=== PATIENT | female | born 1955 | race African-American/Black ===

== ENCOUNTER 2018-03-20 12:48 | Emergency (ER) | payer SELFPAY ==
[2018-03-20 13:35] VITALS: BP 153/102
--- NOTE | 2018-03-20 13:38 | UC ---
Respiratory Complaint HPI - HPI Summary HPI Summary: 63 yo female presents with intermittently productive cough, sore throat, itchy eyes, and sinus congestion for 2 days. She took Zyrtec last night and had no change in her symptoms. Denies fever, chills, SOB, chest pain, abdominal pain, n /v. - History of Current Complaint Chief Complaint: UCRespiratory Stated Complaint: COUGH Time Seen by Provider: 03/20/18 13:38 Hx Obtained From: Patient Onset/Duration: Gradual Onset Severity Initially: Mild Severity Currently: Mild Pain Intensity: 3 Pain Scale Used: 0-10 Numeric - Allergies/Home Medications Allergies/Adverse Reactions: Allergies Allergy/AdvReac Type Severity Reaction Status Date / Time pollen Allergy Itching Uncoded 03/20/18 13:30 Home Medications: Home Medications guaiFENesin LIQ* [Robitussin*] 5 mg PO Q4H PRN 03/20/18 [History Confirmed 03/20] PMH/Surg Hx/FS Hx/Imm Hx - Additional Past Medical History Additional PMH: None Previously Healthy: Yes - Surgical History Surgical History: None - Family History Known Family History: Positive: None - Social History Occupation: Retired Lives: With Family Alcohol Use: None Substance Use Type: None Smoking Status (MU): Never Smoked Tobacco Review of Systems Constitutional: Negative Skin: Negative Eyes: Negative ENT: Sore Throat, Sinus Congestion Respiratory: Cough Cardiovascular: Negative Gastrointestinal: Negative Neurovascular: Negative Neurological: Negative Psychological: Negative All Other Systems Reviewed And Are Negative: Yes Physical Exam - Summary Physical Exam Summary: GENERAL: NAD. WDWN. No pain distress. SKIN: No rashes, sores, lesions, or open wounds. HEENT: Head: AT/NC Eyes: EOM intact. Conjunctiva clear without inflammation or discharge. Ears: Hearing grossly normal. TMs intact, no bulging, erythema, or edema. Nose: Nasal mucosa pink and moist. NTTP maxillary and frontal sinus. Throat: Posterior oropharynx without exudates, erythema, or tonsillar enlargement. Uvula midline. NECK: Supple. Nontender. No lymphadenopathy. CHEST: CTAB. No r/r/w. No accessory muscle use. Breathing comfortably and in no distress. CV: RRR. Without m/r/g. Pulses intact. Brisk cap refill. NEURO: Alert. CN II-XII grossly intact. PSYCH: Age appropriate behavior. Triage Information Reviewed: Yes Vital Signs: Initial Vital Signs Temp 98.7 F 03/20/18 13:31 Pulse 110 03/20/18 13:31 Resp 20 03/20/18 13:31 BP 153/102 03/20/18 13:31 Pulse Ox 97 03/20/18 13:31 Diagnostic Evaluation - Laboratory O2 Sat by Pulse Oximetry: 97 Respiratory Course/Dx - Course Course Of Treatment: Suspect allergies. Tessalon for cough. Nasonex for sinuses and naphcon for itchy eyes. - Differential Dx/Diagnosis Provider Diagnoses: Allergies Discharge - Sign-Out/Discharge Documenting (check all that apply): Discharge/Admit/Transfer - Discharge Plan Condition: Stable Disposition: HOME Prescriptions: Benzonatate CAP* [Tessalon 100 MG CAP*] 100 mg PO TID PRN #15 cap PRN Reason: Cough Mometasone Furoate [Nasonex] 1 spray BOTH NARES DAILY #1 bottle Naphazoline/Pheniramine OPTH* [Naphcon-A*] 1 drop BOTH EYES BID #1 btl Patient Education Materials: Allergies (ED) Referrals: No Primary Care Phys,NOPCP [Primary Care Provider] - Additional Instructions: If you develop a fever, shortness of breath, chest pain, new or worsening symptoms - please call your PCP or go to the ED. Your blood pressure was high at todays visit. Please see your primary provider within 4 weeks for recheck and re-evaluation. - Billing Disposition and Condition Condition: STABLE Disposition: HOME
[2018-03-20] MEDS ORDERED: Benzonatate CAP* 100 MG PO ONE (13:46)
== END 2018-03-20 14:03 | disposition home or self-care (01) ==
LOC: UCEAST 12:48
DX: T78.40XA Allergy, unspecified, initial encounter (principal); X58.XXXA Exposure to other specified factors, initial encounter
CPT/HCPCS: 99202; A9270-GY; G0463

== ENCOUNTER 2018-08-14 13:19 | Emergency (ER) | payer SELFPAY ==
[2018-08-14] MEDS ORDERED: Ketorolac INJ* 60 MG/2 ML VIAL IM ONE (14:30)
[2018-08-14] MEDS ORDERED: HYDROcodone/ACETAMIN 5-325 MG* 1 TAB PO ONE (14:30)
--- NOTE | 2018-08-14 14:31 | UC ---
Upper Extremity HPI - HPI Summary HPI Summary: This patient is a 63 year old F presenting to [facility] [place] with a chief complaint of right shoulder pain and numbness for the last two weeks. The patient rates the waxing and waning pain 9/10 in severity. Symptoms aggravated by movement. She has no other complaints at this time. - History of Current Complaint Chief Complaint: UCUpperExtremity Stated Complaint: SHOULDER PAIN NUMBNESS Time Seen by Provider: 08/14/18 14:19 Hx Obtained From: Patient Onset/Duration: Lasting Weeks - 2, Still Present Severity Initially: Moderate Severity Currently: Severe Pain Intensity: 9 Pain Scale Used: 0-10 Numeric Location Of Pain: Is Discrete @ - right shoulder Aggravating Factor(s): Movement Associated Signs And Symptoms: Positive: Negative - fever, Numbness/Tingling - Allergies/Home Medications Allergies/Adverse Reactions: Allergies Allergy/AdvReac Type Severity Reaction Status Date / Time pollen Allergy Itching Uncoded 08/14/18 13:41 Home Medications: Home Medications Ibuprofen 1 tab PO TID PRN 08/14/18 [History Confirmed 08/14/18] PMH/Surg Hx/FS Hx/Imm Hx Previously Healthy: Yes Other History Of: Negative For: Hepatitis B, Hepatitis C - Surgical History Surgical History: None - Family History Known Family History: Positive: Hypertension Negative: Respiratory Disease, Seizure Disorder - Social History Occupation: Retired Alcohol Use: None Substance Use Type: None Smoking Status (MU): Never Smoked Tobacco - Immunization History Most Recent Tetanus Shot: UTD Review of Systems Musculoskeletal: Other: - right shoulder pain Neurological: Numbness All Other Systems Reviewed And Are Negative: Yes Physical Exam - Summary Physical Exam Summary: VITAL SIGNS: Reviewed. GENERAL: Patient is a well-developed and nourished female who is lying comfortable in the stretcher. Patient is not in any acute respiratory distress. HEAD AND FACE: Normocephalic EYES: PERRLA, EOMI x 2. EARS: Hearing grossly intact. MOUTH: Oropharynx within normal limits. NECK: Supple, trachea is midline, no adenopathy, no JVD, no carotid bruit. CHEST: Symmetric, no tenderness at palpation LUNGS: Clear to auscultation bilaterally. No wheezing or crackles. CVS: Regular rate and rhythm, S1 and S2 present, no murmurs or gallops appreciated. ABDOMEN: Soft, non-tender. Bowel sounds are normal. No abdominal abnormal pulsations. EXTREMITIES: no edema, no cyanosis or clubbing. No deformity no rashes no ecchymosis. Decreased ROM especially adduction to 90 degrees secondary to pain in the right shoulder. NEURO: Alert and oriented x 3. No acute neurological deficits. Speech is normal and follows commands. SKIN: Dry and warm Triage Information Reviewed: Yes Vital Signs: Initial Vital Signs Temp 98 F 08/14/18 13:39 Pulse 92 08/14/18 13:39 Resp 20 08/14/18 13:39 BP 179/108 08/14/18 13:39 Pulse Ox 100 08/14/18 13:39 Vital Signs Reviewed: Yes Upper Extremity Course/Dx - Course Course Of Treatment: BP noted and pt advised to f/u with PCP. Patient is a 63- year-old female who presents to the urgent care with a chief complaint of right shoulder pain. She denies any history of trauma or heavy lifting. 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 It seems that the patient has a rotator cuff bursitis. The patient declined any x-rays since she doesn't have any history of trauma or heavy lifting. Therefore the patient was given Toradol and [place] for the pain. At this time I discussed my physical exam, findings and test results with the patient and the need to follow -up with PCP and or orthopedics. The patient will be given a prescription for pain medications and muscle relaxants and the follow-up with orthopedics and primary care physician. He is hemodynamically stable alert oriented 3. - Differential Dx/Diagnosis Provider Diagnoses: Rotator cuff injury. elevated BP without prior dx of HTN Discharge - Sign-Out/Discharge Documenting (check all that apply): Patient Departure All imaging exams completed and their final reports reviewed: No Studies - Discharge Plan Condition: Stable Disposition: HOME Prescriptions: HYDROcodone/ACETAMIN 5-325 MG* [[place] 5-325 TAB*] 1 tab PO Q6H PRN #12 tab MDD 4 PRN Reason: Pain methylPREDNISolone [Medrol Dosepak 4 MG*] 0 mg PO .SEE ATIYA INSTRUCTION #1 atiya Patient Education Materials: Shoulder Pain (ED) Referrals: No Primary Care Phys,NOPCP [Primary Care Provider] - Additional Instructions: FOLLOW UP WITH YOUR PRIMARY CARE PROVIDER WITHIN ONE WEEK FOR HIGH BLOOD PRESSURE NOTED TODAY. RETURN TO ED FOR ANY WORSENING OR NEW SYMPTOMS. - Billing Disposition and Condition Condition: STABLE Disposition: Home - Attestation Statements Document Initiated by Scribe: Yes Documenting Scribe: Ja Killian Provider For Whom Nicolasaibe is Documenting (Include Credential): Pratik Garcia MD Scribe Attestation: IaJ, scribed for Pratik Garcia MD on 08/14/18 at 1649. Scribe Documentation Reviewed: Yes Provider Attestation: The documentation as recorded by the Ja rod accurately reflects the service I personally performed and the decisions made by me, Pratik Garcia MD
[2018-08-14 14:59] VITALS: BP 167/100
== END 2018-08-14 15:00 | disposition home or self-care (01) ==
LOC: UCEAST 13:19
DX: S46.001A Unspecified injury of muscle(s) and tendon(s) of the rotator cuff of right shoulder, initial encounter (principal); R03.0 Elevated blood-pressure reading, without diagnosis of hypertension; Z91.048 Other nonmedicinal substance allergy status; X50.1XXA Overexertion from prolonged static or awkward postures, initial encounter; Y92.9 Unspecified place or not applicable
CPT/HCPCS: 96372; 99212; G0463; J1885